=== PATIENT | male | born 1960 | race Caucasian/White ===

== ENCOUNTER 2022-05-08 07:05 | Day surgery (SDC) | payer OTHER ==
[2022-05-06 14:49] VITALS: BMI 26.1
[2022-05-08] MEDS ORDERED: Oxymetazoline HCl 0.05% (30 ML BOT) ONE ×2 (08:35→10:24)
[2022-05-08] MEDS ORDERED: fentaNYL Citrate/PF 100 MCG/2 ML SYRINGE ONE (10:14)
[2022-05-08] MEDS ORDERED: Bacitracin Zinc Ointment 30 gm TUBE ONE (10:23)
[2022-05-08] MEDS ORDERED: Lidocaine 1% w/Epinephrine 1:200K 30 ML VIAL ONE (10:23)
[2022-05-08] MEDS ORDERED: Glycopyrrolate 0.2 MG/ML 5 ML SYRINGE ONE (10:33)
[2022-05-08] MEDS ORDERED: Rocuronium Bromide 10 MG/ML (10ML VIAL) ONE (10:33)
[2022-05-08] MEDS ORDERED: PROPOFOL 200 MG/20 ML VIAL ONE (10:33)
[2022-05-08] MEDS ORDERED: Lidocaine 1% PF 5 ML VIAL ONE (10:33)
[2022-05-08] MEDS ORDERED: Dexamethasone 20 MG/5 ML VIAL ONE (10:33)
[2022-05-08] MEDS ORDERED: Ondansetron PF 4 MG/2 ML Vial ONE (10:33)
[2022-05-08] MEDS ORDERED: Fentanyl 100 MCG/2 ML VIAL ONE ×2 (11:12→11:35)
== END 2022-05-08 13:20 | disposition home or self-care (01) ==
LOC: EDBD → SDC 07:05
PROVIDERS: ATTEND Otolaryngology Plastic Surgery within the Head & Neck
PROC: 095L0ZZ Destruction of Nasal Turbinate, Open Approach (ICD-10-PCS; principal; 2022-05-08)
PROC: 09QK0ZZ Repair Nasal Mucosa and Soft Tissue, Open Approach (ICD-10-PCS; principal; 2022-05-08)
PROC: 09SM0ZZ Reposition Nasal Septum, Open Approach (ICD-10-PCS; principal; 2022-05-08)
DX: J34.2 Deviated nasal septum (principal); J34.3 Hypertrophy of nasal turbinates; J34.89 Other specified disorders of nose and nasal sinuses; K21.9 Gastro-esophageal reflux disease without esophagitis; Z79.899 Other long term (current) drug therapy
CPT/HCPCS: 93005; 93010; J1100; J2405; J2704; J2710; J3010